=== PATIENT | male | born 1955 | race Caucasian/White ===

== ENCOUNTER 2021-08-15 09:07 | Outpatient (CLI) | payer BC | END 2021-08-15 09:08 | disposition home or self-care (01) | LOC: ULT 09:07 | PROVIDERS: ATTEND Internal Medicine Hematology & Oncology | DX: D69.59 Other secondary thrombocytopenia (principal); D72.818 Other decreased white blood cell count; R76.0 Raised antibody titer | CPT/HCPCS: 76700 ==